=== PATIENT | male | born 1975 ===

== ENCOUNTER → 2019-08-04 13:47 | Outpatient (CLI) | payer OTHER, SELFPAY | DX: Z23 Encounter for immunization (principal) | CPT/HCPCS: 90471; 90686 ==

== ENCOUNTER → 2020-05-24 10:36 | Outpatient (CLI) | payer OTHER, SELFPAY ==
[2020-05-25 19:04] LABS: COVID19 Sendout Not Detected (Not Detect)
== END ==
PROVIDERS: Visit Provider Physician Assistant
DX: Z03.818 Encounter for observation for suspected exposure to other biological agents ruled out (principal)
CPT/HCPCS: 87635

== ENCOUNTER → 2020-08-08 18:04 | Outpatient (CLI) | payer OTHER, SELFPAY | PROVIDERS: Referring Provider Internal Medicine; Visit Provider Internal Medicine | DX: Z23 Encounter for immunization (principal) | CPT/HCPCS: 90471; 90686 ==

== ENCOUNTER → 2020-11-03 07:40 | Outpatient (CLI) | payer OTHER, SELFPAY ==
--- NOTE | 2020-11-03 07:42 | DI.RAD.S_ITS ---
PROCEDURE: XR FOOT LT MIN 3V INDICATIONS: L 2nd toe tip and base pain TECHNIQUE: Three views of the foot were acquired. COMPARISON: None. FINDINGS: Bones: No fractures or dislocations. No suspicious bony lesions. Soft tissues: No tibiotalar joint effusion. Achilles tendon appears normal. IMPRESSION: Normal left foot. Dictated by: Lizette Garcia M.D. on 11/03/2020 at 8:02 Approved by: Lizette Garcia M.D. on 11/03/2020 at 8:02
== END ==
PROVIDERS: Referring Provider Nurse Practitioner; Visit Provider Nurse Practitioner
DX: M79.675 Pain in left toe(s) (principal)
CPT/HCPCS: 73630

== ENCOUNTER → 2020-11-14 11:05 | Outpatient (CLI) | payer OTHER, SELFPAY ==
[2020-11-14] MEDS: COVID-19 VACC(MODERNA-1)/PF 100 MCG/0.5 ML VIAL IM (11:08)
== END ==
PROVIDERS: Visit Provider Internal Medicine
DX: Z23 Encounter for immunization (principal)
CPT/HCPCS: 0011A; 91301

== ENCOUNTER → 2020-12-11 10:45 | Outpatient (CLI) | payer OTHER, SELFPAY ==
[2020-12-11] MEDS: COVID-19 VACC #2, MRNA(MOD) 100 MCG/0.5 ML VIAL IM (10:47)
== END ==
PROVIDERS: Visit Provider Internal Medicine
DX: Z23 Encounter for immunization (principal)
CPT/HCPCS: 0012A; 91301

== ENCOUNTER → 2021-08-15 | Outpatient (CLI) | payer OTHER, SELFPAY | PROVIDERS: Referring Provider Internal Medicine; Visit Provider Internal Medicine | DX: Z23 Encounter for immunization (principal) | CPT/HCPCS: 90471; 90686 ==

== ENCOUNTER → 2021-11-05 11:31 | Outpatient (CLI) | payer OTHER, SELFPAY ==
[2021-11-05 12:46] LABS: COVID19 -Nasal RAPID Negative (Negative)
== END ==
PROVIDERS: Referring Provider Physician Assistant; Visit Provider Physician Assistant
DX: Z20.822 Contact with and (suspected) exposure to COVID-19 (principal)
CPT/HCPCS: 87635

== ENCOUNTER → 2022-08-05 08:26 | Outpatient (CLI) | payer OTHER, SELFPAY | PROVIDERS: Referring Provider Internal Medicine; Visit Provider Internal Medicine | DX: Z23 Encounter for immunization (principal) | CPT/HCPCS: 90471; 90686 ==

== ENCOUNTER 2023-03-25 09:07 | Observation (INO) | payer OTHER, SELFPAY ==
[2023-03-25] VITALS (18 sets, daily range): BP systolic 128–169; BP diastolic 81–95; PULSE 76–139; RESP 13–22; TEMP 36.6–37.4; O2SAT 98–100; BMI 19.3
--- NOTE | 2023-03-25 | PATH_ITS ---
[facility] Accession Number: [id number] No. of containers..01 Tissue . 01 Material submitted: . appendix - APPENDIX . 01 Diagnosis: Appendix, Appendectomy: Acute appendicitis and periappendicitis. [facility] 03/30/2023 0923 Local . 01 Electronically signed: . Jael Jean MD, Pathologist NPI- [id number] . 01 Gross description: . The specimen is received in formalin labeled with the patient's name, , and appendix, and consists of a ortiz-brown, vermiform appendix measuring 5.8 x 0.7 cm with ortiz to brown, roughened serosa and a small amount of mesoappendix extending out to 1.3 cm. The margin is received closed with marquis which are removed and the margin is inked blue. The lumen is filled with brown semi-solid material ranging from 0.3 to 0.6 cm in greatest dimension. The lawton are ortiz, average 0.2 cm thick with no lesions or perforations grossly identified. Volcanologist sections to include the margin, one-half of the bisected distal tip and cross-sections are submitted in cassette A1. ([id number]) /WILLY 03/27/2023 0911 Local . 01 Pathologist provided ICD-10: K35.80 . 01 CPT . 240132 Specimen Comment: A courtesy copy of this report has been sent to [phone] Performed at: [address] [id number] MD Mario Herr MD Phone: [phone]
--- NOTE | 2023-03-25 09:21 | DI.CT.S_ITS ---
PROCEDURE: CT ABDOMEN PELVIS W CON INDICATIONS: RLQ abd pain eval for appy TECHNIQUE: After the administration of intravenous contrast, axial sections acquired from the lung bases to the pubic symphysis. Coronal and sagittal reformats were performed. For radiation dose reduction, the following was used: automated exposure control, adjustment of mA and/or kV according to patient size. COMPARISON: None. FINDINGS: Image quality: Excellent. Lung bases: Unremarkable. Heart: No significant findings. ABDOMEN: Liver: Multiple well-circumscribed hypodense areas are seen scattered in liver parenchyma measures up to 5.2 x 3.2 cm in size in right hepatic lobe series 2, image 18 and 10.7 Hounsfield unit in density. Gallbladder: Unremarkable. Biliary ducts: Unremarkable. Pancreas: Unremarkable. Spleen: Unremarkable. Adrenal Glands: Unremarkable. Kidneys and Ureters: Unremarkable. Stomach and Bowel: There is no bowel obstruction. No gastric wall thickening. Appendix is enlarged with appendiceal wall thickening and significant adjacent mesenteric fat stranding. No abscess collection. No other area of abnormal bowel wall thickening. Peritoneum: No abnormal intraperitoneal fluid. No free air. Ventral Wall: No hernias. Abdominal Nodes: No retroperitoneal or mesenteric adenopathy by size criteria. Vessels: Aorta and inferior vena cava are normal in size. PELVIS: Pelvic Organs: Unremarkable. Bladder: Unremarkable. Pelvic Nodes: No enlarged lymph nodes. Miscellaneous: No hernias are seen. Bones: No suspicious bony lesions. No acute vertebral body compression fracture. IMPRESSION: 1. Finding is consistent with acute appendicitis. No signs of perforation. No abscess collection. No free fluid or free air. 2. 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 Dictated by: Vahid Yao M.D. on 03/25/2023 at 8:41 Approved by: Vahid Yao M.D. on 03/25/2023 at 8:44
--- NOTE | 2023-03-25 09:21 | ED.GENADULT ---
HPI - General Adult General Chief complaint: Abdominal Pain Stated complaint: rt lower quad pain Time Seen by Provider: 03/25/23 09:08 Source: patient Mode of arrival: Ambulatory Limitations: no limitations History of Present Illness HPI narrative: Patient is a 48-year-old male who is here for evaluation of just under 24 hours of right lower quadrant abdominal pain. He states he is having some nausea but no vomiting. Had a bowel movement yesterday and this morning without any change in the symptoms. No urinary symptoms. Has not tried anything for his symptoms. No prior abdominal surgeries. No fevers. Related Data Allergies Allergy/AdvReac Type Severity Reaction Status Date / Time No Known Drug Allergies Allergy Verified 05/24/20 10:51 Review of Systems Constitutional Constitutional: Reports system reviewed and no additional complaints, except as documented Cardiovascular Cardiovascular: Reports system reviewed and no additional complaints, except as documented Respiratory Respiratory: Reports system reviewed and no additional complaints, except as documented Gastrointestinal Gastrointestinal: Reports system reviewed and no additional complaints, except as documented Integumentary/Breasts Skin/Breast: Reports system reviewed and no additional complaints, except as documented Patient History Medical History No significant medical problems Social History Smoking Status: Former smoker Smoking Status: Former smoker alcohol intake frequency: a few times a week Alcohol type: beer Substance Use Type: does not use Exam Initial Vital Signs Initial Vital Signs: Vital Signs Temperature 98.8 F 03/25/23 09:12 Pulse Rate 139 H 03/25/23 09:12 Respiratory Rate 16 03/25/23 09:12 Blood Pressure 149/89 H 03/25/23 09:12 Pulse Oximetry 99 03/25/23 09:12 Oxygen Delivery Method Room Air 03/25/23 09:12 Const General: cooperative, comfortable and No ill appearing HENMT Head: normal to inspection and normocephalic Resp Effort & Inspection: normal respiratory effort Auscultation: clear to auscultation bilaterally Cardio Rate: tachycardic Rhythm: regular rhythm GI Inspection: normal to inspection and non-distended Palpation: soft, No firm, guarding, No rigid and tender (Right lower quadrant) Skin General: no rashes or lesions noted Neuro General: patient alert, patient awake and moves all extremities Extrem General: normal to inspection Course Orders Ordered: ED Orders 03/25/23 09:16 Complete Blood Count AUTO DIFF Stat Comprehensive Metabolic Panel Stat Lipase Stat 03/25/23 09:21 CT abdomen pelvis w con Stat 03/25/23 09:55 Blood Culture Stat 03/25/23 10:01 COVID19 -Nasal RAPID Stat Sodium Chloride (Normal Saline 0.9%) 1,000 mls @ 1,000 mls/hr IV BOLUS ONE Stop: 03/25/23 10:23 Last Admin: 03/25/23 09:38 Dose: 1,000 mls/hr Documented By: RB Lactated Ringer's (Lactated Ringers) 1,000 mls @ 100 mls/hr IV CONT JANINE Discontinued Medications Piperacillin Sod/Tazobactam (Sod 4.5 gm/ Sodium Chloride) 100 mls @ 200 mls/hr IV NOW ONE Stop: 03/25/23 09:57 Vital Signs Vital signs: Vital Signs - 8 hr 03/25/23 09:12 03/25/23 09:12 03/25/23 09:15 Temperature 98.8 F Pulse Rate 139 H 132 H 122 H Respiratory Rate 16 Blood Pressure 149/89 H Pulse Oximetry 99 99 99 Oxygen Delivery Method Room Air 03/25/23 09:21 03/25/23 09:21 Temperature Pulse Rate 119 H Respiratory Rate 18 Blood Pressure 169/95 H Pulse Oximetry 99 Oxygen Delivery Method Medical Decision Making Lab Data Lab results reviewed: Yes I reviewed the patient's lab results. 03/25/23 09:16 03/25/23 09:16 Labs: Lab Results 03/25/23 03/25/23 Range/Units 09:16 09:16 WBC 14.3 H (4.5-11.0) X10^3/uL RBC 4.89 (4.5-5.9) X10^6/uL Hgb 15.1 (13.5-17.5) g/dL Hct 44.5 (41-53) % MCV 91.0 (80-100) fL MCH 30.8 (26-34) PG MCHC 33.8 (30-36) % RDW 13.6 (11.6-14.8) % Plt Count 335 (150-400) X10^3/uL Neut % (Auto) 80.9 H (50-75) % Lymph % (Auto) 10.0 L (25-40) % [place] % (Auto) 8.1 (3-14) % Eos % (Auto) 0.5 L (2-4) % Baso % (Auto) 0.5 (0-2) % Neut # (Auto) 64841 H (5066-1075) /uL Lymph # (Auto) 1400 (8690-7461) /uL [place] # (Auto) 1200 H (0-900) /uL Eos # (Auto) 100 (0-450) /uL Baso # (Auto) 100 (0-100) /uL Sodium 137 (137-145) mmol/L Potassium 4.0 (3.4-5.1) mmol/L Chloride 98 (98-107) mmol/L Carbon Dioxide 29 (22-32) mmol/L BUN 8 L (9-20) mg/dL Creatinine 0.77 (0.66-1.25) mg/dL Estimated GFR > 60 (>60) mL/min BUN/Creatinine Ratio 10.4 (6-22) Glucose 115 H (70-100) mg/dL Calcium 9.5 (8.4-10.2) mg/dL Total Bilirubin 1.5 H (0.2-1.3) mg/dL AST 26 (17-59) IU/L ALT 19 (<50) IU/L Alkaline Phosphatase 75 (38-126) U/L Total Protein 8.7 H (6.3-8.2) g/dL Albumin 4.9 (3.5-5.0) g/dL Globulin 3.8 (1.7-4.1) g/dL Albumin/Globulin Ratio 1.3 (1.0-2.8) Lipase 69 (23-300) U/L Point of Care Testing Glucose POC 115 Point of care testing: Point of Care Testing Glucose POC [address] scan - abdomen/pelvis: Radiologist's Impression: PROCEDURE:? CT ABDOMEN PELVIS W CON ? INDICATIONS:? RLQ abd pain eval for appy ? TECHNIQUE:? After the administration of intravenous contrast, axial sections acquired from the lung bases to the pubic symphysis.? Coronal and sagittal reformats were performed.? For radiation dose reduction, the following was used:? automated exposure control, adjustment of mA and/or kV according to patient size.? ? COMPARISON:? None. ? FINDINGS:? Image quality:? Excellent.? ? Lung bases:? Unremarkable. Heart:? No significant findings. ? ABDOMEN: Liver:? Multiple well-circumscribed hypodense areas are seen scattered in liver parenchyma measures up to 5.2 x 3.2 cm in size in right hepatic lobe series 2, image 18 and 10.7 Hounsfield unit in density. Gallbladder:? Unremarkable. Biliary ducts:? Unremarkable.? ? Pancreas:? Unremarkable.? ? Spleen:? Unremarkable.? ? Adrenal Glands:? Unremarkable.? ? Kidneys and Ureters:? Unremarkable.? ? ? Stomach and Bowel:? There is no bowel obstruction.? No gastric wall thickening.? Appendix is enlarged with appendiceal wall thickening and significant adjacent mesenteric fat stranding.? No abscess collection.? No other area of abnormal bowel wall thickening. Peritoneum:? No abnormal intraperitoneal fluid.? No free air.? ? Ventral Wall: ? No hernias.? Abdominal Nodes:? No retroperitoneal or mesenteric adenopathy by size criteria.? Vessels:? Aorta and inferior vena cava are normal in size.? ? PELVIS: Pelvic Organs:? Unremarkable.? ? Bladder:? Unremarkable.? ? Pelvic Nodes: No enlarged lymph nodes.? Miscellaneous: No hernias are seen. ? ? ? Bones:? No suspicious bony lesions.? No acute vertebral body compression fracture. ? ? IMPRESSION:? ? 1. Finding is consistent with acute appendicitis.? No signs of perforation.? No abscess collection.? No free fluid or free air. ? 2. 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 Patient was informed of this finding. Discussed the case with Dr. Rodriguez on-call for General surgery. She recommended antibiotics. Will admit the patient for surgical treatment. Discharge Plan Departure Patient Disposition: Admitted As Inpatient Clinical Impression: Acute appendicitis Admit Date/Time: 03/25/23 09:57 Admit Provider: Dodie Rodriguez
[2023-03-25 09:24] LABS: Add Manual Diff / Slide Review NO; Basophils Absolute Auto 100 /uL (0-100); Basophils Percent Auto 0.5 % (0-2); Eosinophils Absolute Auto 100 /uL (0-450); Eosinophils Percent Auto 0.5 % (2-4); Hematocrit 44.5 % (41-53); Hemoglobin 15.1 g/dL (13.5-17.5); Lymphocytes Absolute Auto 1400 /uL (1100-4500); Mean Corpuscular HGB Conc 33.8 % (30-36); Mean Corpuscular Hemoglobin 30.8 PG (26-34); Monocytes Absolute Auto 1200 /uL (0-900); Monocytes Percent Auto 8.1 % (3-14); Neutrophils Absolute Auto 11500 /uL (1500-7000); Neutrophils Percent Auto 80.9 % (50-75); Platelet Count 335 X10^3/uL (150-400); Red Blood Cell Count 4.89 X10^6/uL (4.5-5.9); Red Cell Distribution Width 13.6 % (11.6-14.8); White Blood Cell Count 14.3 X10^3/uL (4.5-11.0)
[2023-03-25 09:36] LABS: Alanine Aminotransferase 19 IU/L (<50); Albumin 4.9 g/dL (3.5-5.0); Albumin Globulin Ratio 1.3 (1.0-2.8); Alkaline Phosphatase 75 U/L (38-126); Aspartate Aminotransferase 26 IU/L (17-59); BUN Creatinine Ratio 10.4 (6-22); Bilirubin Total 1.5 mg/dL (0.2-1.3); Blood Urea Nitrogen 8 mg/dL (9-20); Calcium 9.5 mg/dL (8.4-10.2); Carbon Dioxide 29 mmol/L (22-32); Chloride 98 mmol/L (98-107); Estimated Glomerular Filt Rate > 60 mL/min (>60); Globulin 3.8 g/dL (1.7-4.1); Glucose 115 mg/dL (70-100); HEMOLYSIS < 15 (0-50); Lipase 69 U/L (23-300); Sodium 137 mmol/L (137-145); Total Protein 8.7 g/dL (6.3-8.2)
[2023-03-25] MEDS: SODIUM CHLORIDE 0.9% 1,000 ML 1000 ML IV (09:38)
[2023-03-25 10:20] LABS: COVID19 -Nasal RAPID Negative (Negative)
[2023-03-25] MEDS: PIPERACILLIN/TAZO 4.5 GM in SODIUM CHLORIDE 0.9% 100 ML IV (10:52)
[2023-03-25] MEDS: LACTATED RINGERS 1,000 ML 100 ML IV (10:53)
--- NOTE | 2023-03-25 11:03 | P.HP_ITS ---
History of Present Illness History of Present Illness Date Patient Seen: 03/25/23 Time Patient Seen: 11:03 Chief complaint: rt lower quad pain Narrative: Less than 24 hours of abdominal pain localizing in RLQ, anorexia. No diarrhea or fever. Pain is sharp, intermittent and worse with movement. CT scan reviewed and confirms acute appendicitis w/o fecal lith or rupture. [facility] Medical History No significant medical problems Social History Smoking Status: Former smoker Meds Home Medications and Allergies Allergies Allergy/AdvReac Type Severity Reaction Status Date / Time No Known Drug Allergies Allergy Verified 05/24/20 10:51 Review of Systems Review of Systems ROS: Yes All systems reviewed with the patient and are negative except as otherwise documented Exam Vital Signs (past 8 hours): - 03/25/23 09:12 03/25/23 09:12 03/25/23 09:15 Temperature 98.8 F Pulse Rate 139 H 132 H 122 H Respiratory Rate 16 Blood Pressure 149/89 H Pulse Oximetry 99 99 99 Oxygen Delivery Method Room Air 03/25/23 09:21 03/25/23 09:21 Temperature Pulse Rate 119 H Respiratory Rate 18 Blood Pressure 169/95 H Pulse Oximetry 99 Oxygen Delivery Method Oxygen Delivery Method Room Air Const General: cooperative and comfortable Nutritional Appearance: thin Orientation: alert, awake and oriented x3 HENMT Head: normocephalic and atraumatic Eyes General: appearance normal, both eyes and all related structures Sclera: sclerae normal Neck Neck: trachea midline Resp Effort & Inspection: normal respiratory effort and able to speak in complete sentences Cardio Rate: regular rate Rhythm: regular rhythm GI Palpation: soft and tender (RLQ tender to palpation) Skin General: elasticity normal and turgor normal Neuro General: patient alert, patient awake and patient oriented x3 Cranial Nerves: tongue midline Psych Mental Status: mental status grossly normal Judgment: judgment good Objective Labs 03/25/23 09:16 03/25/23 09:16 Labs: Laboratory Results - last 24 hr 03/25/23 03/25/23 03/25/23 09:16 09:16 10:01 WBC 14.3 H RBC 4.89 Hgb 15.1 Hct 44.5 MCV 91.0 MCH 30.8 MCHC 33.8 RDW 13.6 Plt Count 335 Neut % (Auto) 80.9 H Lymph % (Auto) 10.0 L [place] % (Auto) 8.1 Eos % (Auto) 0.5 L Baso % (Auto) 0.5 Neut # (Auto) 88228 H Lymph # (Auto) 1400 [place] # (Auto) 1200 H Eos # (Auto) 100 Baso # (Auto) 100 Sodium 137 Potassium 4.0 Chloride 98 Carbon Dioxide 29 BUN 8 L Creatinine 0.77 Estimated GFR > 60 BUN/Creatinine Ratio 10.4 Glucose 115 H Calcium 9.5 Total Bilirubin 1.5 H AST 26 ALT 19 Alkaline Phosphatase 75 Total Protein 8.7 H Albumin 4.9 Globulin 3.8 Albumin/Globulin Ratio 1.3 Lipase 69 SARS-CoV-2 (PCR) Negative Assessment & Plan Assessment & Plan narrative: Acute appendicitis Plan: IV Zosyn followed by siomara panchal with Dr. Finley COVID-19 COVID-19 status: Negative Time Spent With Patient Time with patient: less than 30 minutes
--- NOTE | 2023-03-25 11:19 | PC.NURSE ---
This RN discharged patient from the ED and gave report to LADY Massey RN for the floor for this patient. ED lead slot technician was transporting this patient upstairs when the surgeon saw the patient in transport in the hallway she had the ED lead slot technician divert the patient to pre-op. This RN received a phone call from JABARI Kahn in pre-op. This RN gave report on this patient to JABARI Kahn
[2023-03-25 13:11] LABS: Bacteria Urine None Seen; Culture Indicated Urine Cult Not Indicated; RBC Urine None Seen (0-5/HPF); Squamous Epithelial Cell Urine None Seen (0-5/HPF); WBC Urine None Seen (0-5/HPF)
--- NOTE | 2023-03-25 13:12 | PM.PREOP ---
Pre-operative Note Interval Note History & Physical reviewed/Exam performed by Physician: Yes Changes to H&P: No H&P completed within 30 days and has changed as indicated here:: 48-year-old man with acute appendicitis. I reviewed his CT abdomen pelvis demonstrates acute appendicitis without abscess. Discussed with the patient management options including antibiotic therapy were appendectomy. His preference is to proceed with laparoscopic appendectomy. Overview of the procedure was discussed. Operative risks including hemorrhage, infection, damage to surrounding structures, conversion to open were discussed. Questions have been answered. He provides his written and verbal consent to proceed.
[2023-03-25] MEDS: ACETAMINOPHEN 325 MG TABLET 975 MG PO (13:28)
[2023-03-25] MEDS: BUPIVACAINE 0.25% (PF) VIAL 30 ML INJ (14:12)
--- NOTE | 2023-03-25 14:18 | SUR.OPER ---
Supine on padded OR bed, head on pillow,LEFT arm padded and tucked at side, legs uncrossed, safety belt at thigh, tape over blanket over lower legs .
--- NOTE | 2023-03-25 14:53 | PM.OP.1 ---
Operative Date/Time/Diagnoses Date of procedure: 03/25/23 Time of procedure: 14:53 Pre-op diagnosis: Acute appendicitis Post-op diagnosis: same Procedure & Clinicians Procedure: Laparoscopic appendectomy Same procedure as scheduled: Yes Indications: 48-year-old man who presented to the emergency department with symptoms and radiographic findings consistent with acute appendicitis. CT demonstrates acute appendicitis without abscess. Surgeon: Yunior Finley Infectious Waste Technician: Chon Brown Anesthesia Type: General Operative Notes Findings: Acutely inflamed but not perforated appendix Specimen(s): other (Appendix) Estimated Blood Loss (mL): 20 Procedure in detail: Patient was brought to the operating room placed supine on the table. Bilateral lower extremity compression devices were applied. Anesthesia was induced and they intubated with an endotracheal tube. They received 3.375 g of Zosyn prior to skin incision. The left arm was tucked and appropriately padded. They were prepped and draped in sterile fashion. Time-out was performed. An infraumbilical incision was made the umbilical stalk was grasped and elevated and incision was made and the abdomen was entered atraumatically. A 12 mm balloon trocar was then placed through the incision and pneumoperitoneum of 14 mm Hg was established. The scope was then inserted and the abdomen inspected, there was no evidence of injury upon entry. Two 5 mm ports were placed under direct visualization, one in the left lower quadrant and second in the lower midline. A thorough laparoscopic evaluation was performed inspecting all four quadrants. No significant free fluid within the pelvis.. The patient was then tilted right side up. The small bowel was then swept to the upper aspect of the abdomen. The tenie were followed to the base of the cecum where the appendix was identified. It was partially retrocecal and I mobilized the cecum medially in order to completely expose the base of the appendix by incising the white line of Toldt. The appendix was was mobilized from its lateral attachments. It was acutely inflamed but not perforated. The mesentery to the appendix was divided using electrocautery. The appendix was then amputated flush at the cecum using the endo-stapler blue load. The specimen was retrieved using a endoscopic retrieval bad through the 10 mm infra-umbilical port. The right paracolic gutter and the pouch of Jeremy were irrigated The 5 mm ports were then removed under direct visualization. The umbilical fascial incision was closed with 0 Vicryl in a figure-eight fashion. The skin wounds were irrigated and closed with 4-0 Monocryl followed by the application of Dermabond. Sponge instrument count at the end of the operation was correct. The patient tolerated procedure well was extubated and transferred to the postoperative care unit in stable condition. Complications: none Post-operative Condition: stable Disposition: same day surgery
--- NOTE | 2023-03-25 17:07 | SUR.PHASEII ---
Report given to me at 1645. Pt vitals wnl. No pain. Smiling, waiting for to pick him up. Declines food or beverage at this time. But ready to eat. Feels Great. Left AC IV removed. Ready for dispo. Incision sites x2 c/d/i, no drainage noted. some bruising.
== END 2023-03-25 17:05 | disposition home or self-care (01) | DRG 343 ==
LOC: ED 09:57 → AC 10:04
PROVIDERS: Surgery; Admitting Provider Surgery; Emergency Provider Emergency Medicine; Referring Provider Emergency Medicine; Visit Provider Surgery
PROC: 0DTJ4ZZ Resection of Appendix, Percutaneous Endoscopic Approach (ICD-10-PCS; CPT 44970; principal; 2023-03-25 14:00)
DX: K35.80 Unspecified acute appendicitis (principal); Z87.891 Personal history of nicotine dependence; Z20.822 Contact with and (suspected) exposure to COVID-19
CPT/HCPCS: 44970; 36415; 74177; 80053; 81003; 81015; 82962; 83690; 85025; 87040; 87086; 87635; 96365; 99221; 99284; C9803; G0378; J1100; J1885; J2405; J2543; J2704; J3010; J3490

== ENCOUNTER → 2023-08-25 14:55 | Outpatient (CLI) | payer OTHER, SELFPAY | PROVIDERS: Referring Provider Family Medicine; Visit Provider Family Medicine | DX: Z23 Encounter for immunization (principal) | CPT/HCPCS: 90471; 90686 ==

== ENCOUNTER → 2024-03-21 10:29 | Outpatient (CLI) | payer OTHER, SELFPAY ==
--- NOTE | 2024-03-21 11:00 | DI.MRI.S_ITS ---
PROCEDURE: MR KNEE RT WO CON INDICATIONS: r/o maniscal tear, R knee swelling + pain TECHNIQUE: Noncontrast sagittal PD fast spin echo and T2 fast spin echo with fat saturation, sagittal 3-D FLASH with fat saturation; coronal T1 spin echo and PD fast spin echo with fat saturation, and axial PD fast spin echo with fat saturation through the knee. COMPARISON: None. FINDINGS: Image quality: Excellent. Menisci: Peripheral displacement of medial meniscus bowing medial collateral ligament is seen with oblique tear involving posterior horn of medial meniscus extending to inferior articulating surface. The lateral meniscus is intact. The meniscal root ligaments appear intact. Cruciate ligaments: The anterior cruciate ligament is mildly thickened. The posterior cruciate ligament is intact. Medial structures: The medial collateral ligament appears thickened with surrounding soft tissue edema. Visualized portions of the pes anserinus tendons appear normal. No abnormal bursal fluid. Lateral structures: The lateral collateral ligament, long and short heads of the biceps femoris tendon appear intact. The popliteus tendon appears normal. Iliotibial band appears normal. Anterior structures: The quadriceps and patellar tendons appear intact. Patellar alignment is normal. No femoral trochlear dysplasia or ventral trochlear prominence. No edema in the infrapatellar fat pad. Bones and cartilage: Significant marrow edema involving medial periphery of medial femoral condyle weight-bearing portion is seen. Edema is also noted involving posterior superior aspect of lateral femoral condyle. No discrete fracture line is seen. The cartilage of the medial and lateral femorotibial compartments, as well as the patellofemoral compartment, appears normal in thickness. Joint space: There is moderate knee joint fluid. No Rg's cyst. Normal appearing synovial plicae are incidentally noted. IMPRESSION: 1. Oblique tear involving posterior horn of medial meniscus extending to inferior articulating surface. No lateral meniscal tear. 2. Degenerative changes involving anterior cruciate ligament. No ACL rupture. The PCL is intact. 3. Low to moderate grade MCL sprain/partial-thickness tear. 4. Suggestion of bony contusion involving weight-bearing portion of medial femoral condyle medial periphery and posterior superior aspect of lateral femoral condyle. No fracture or dislocation. Articulating cartilages normal in thickness. 5. Moderate joint effusion, no loose bodies. Dictated by: Vahid Yao M.D. on 03/21/2024 at 11:39 Approved by: Vahid Yao M.D. on 03/21/2024 at 11:41
== END ==
PROVIDERS: PCP Family Medicine; Referring Provider Family Medicine; Visit Provider Family Medicine
DX: S83.241A Other tear of medial meniscus, current injury, right knee, initial encounter (principal); S83.411A Sprain of medial collateral ligament of right knee, initial encounter; M25.461 Effusion, right knee; M25.569 Pain in unspecified knee
CPT/HCPCS: 73721

== ENCOUNTER → 2024-11-17 07:24 | Outpatient (CLI) | payer OTHER, SELFPAY | PROVIDERS: PCP Family Medicine; Visit Provider Nurse Practitioner Family | DX: J02.9 Acute pharyngitis, unspecified (principal) | CPT/HCPCS: 87070 ==